=== PATIENT | male | born 1945 | race Caucasian/White ===

== ENCOUNTER 2018-08-23 11:34 | Outpatient (CLI) | payer MEDICARE, OTHER ==
[~2018-08-23] VITALS: Ht 182.9 cm; Wt 108.9 kg
[2018-08-23 12:04] VITALS: BP 110/71
[2018-08-23] MEDS ORDERED: NABU500T PO ×2 (12:37→14:32)
[2018-08-23] MEDS ORDERED: MULT-35 PO (14:32)
[2018-08-23] MEDS ORDERED: TRAM50TA2 PO (14:32)
[2018-08-23] MEDS ORDERED: METF500T8 PO (14:32)
[2018-08-23] MEDS ORDERED: FENO160T12 PO (14:32)
[2018-08-23] MEDS ORDERED: CHOL20003 PO (14:32)
[2018-08-23] MEDS ORDERED: LORA10TA7 PO (14:32)
[2018-08-23] MEDS ORDERED: TERA5CAP3 PO (14:32)
[2018-08-23] MEDS ORDERED: FURO-124 PO (14:32)
[2018-08-23] MEDS ORDERED: ATOR80TA76 PO (14:32)
[2018-08-23] MEDS ORDERED: WARF5TAB PO ×2 (14:32)
[2018-08-23] MEDS ORDERED: SAXA2.5T PO (14:32)
[2018-08-23] MEDS ORDERED: MELO7.5T46 PO (14:32)
[2018-08-23] MEDS ORDERED: CARV12.53 PO (14:32)
[2018-08-23] MEDS ORDERED: LISI-556 PO (14:32)
[2018-08-23] MEDS ORDERED: SPIR25TA5 PO (14:32)
[2018-08-23] MEDS ORDERED: GLYB5TAB6 PO (14:32)
== END 2018-08-23 12:40 | disposition home or self-care (01) ==
LOC: PREOP 11:34
PROVIDERS: ATTEND Orthopaedic Surgery Orthopaedic Surgery of the Spine
DX: Z01.818 Encounter for other preprocedural examination (principal)
CPT/HCPCS: 87081

== ENCOUNTER 2018-08-29 05:56 | Inpatient (IN) | payer MEDICARE, OTHER ==
[~2018-08-29] VITALS: Ht 182.9 cm; Wt 108.9 kg
[2018-08-29] VITALS (12 sets, daily range): BP systolic 108–147; BP diastolic 59–114
[~2018-08-29 05:56] MED LIST: ATOR80TA76 PO; CARV12.53 PO; CHOL20003 PO; FENO160T12 PO; FURO-124 PO; GLYB5TAB6 PO; LISI-556 PO; LORA10TA7 PO; MELO7.5T46 PO; METF500T8 PO; MULT-35 PO; NABU500T PO; SAXA2.5T PO; SPIR25TA5 PO; TERA5CAP3 PO; TRAM50TA2 PO; WARF5TAB PO
[2018-08-29] MEDS ORDERED: ceFAZolin 2 GM IV Premixed 50 ML IV ONE (06:15)
[2018-08-29] MEDS ORDERED: DEXMEDETOMIDINE 200 MCG/2 ML (PRECEDEX) VIAL IV ONE ×2 (06:34→08:30)
[2018-08-29] MEDS ORDERED: fentaNYL INJECTION 100 MCG/2 ML AMP ONE (06:34)
[2018-08-29] MEDS ORDERED: MIDAZOLAM 2 MG/2 ML (VERSED) VIAL ONE (06:34)
[2018-08-29] MEDS: LACTATED RINGERS 1,000 ML IV PRN ×3 (06:35→09:46)
[2018-08-29] MEDS ORDERED: FAMOTIDINE 20MG/2ML IV (PEPCID) IV ONE (06:45)
[2018-08-29 06:46] LABS: BASOPHILS % (AUTO) 0 % (0-10); EOSINOPHILS # (AUTO) 0.2 10^3/uL (0.0-0.3); EOSINOPHILS % (AUTO) 2 % (0-10); HEMATOCRIT 45 % (40-54); HEMOGLOBIN 15.4 G/DL (13.3-17.7); LYMPHOCYTES % (AUTO) 12 % (12-44); MEAN CORPUSCULAR HEMOGLOBIN 32 PG (25-34); MEAN CORPUSCULAR HGB CONC 34 G/DL (32-36); MEAN CORPUSCULAR VOLUME 94 FL (80-99); MEAN PLATELET VOLUME 10.6 FL (7.4-10.4); MONOCYTES # (AUTO) 0.8 X 10^3 (0.0-1.0); MONOCYTES % (AUTO) 10 % (0-12); NEUTROPHILS # (AUTO) 6.8 X 10^3 (1.8-7.8); NEUTROPHILS % (AUTO) 76 % (42-75); PLATELET COUNT 201 10^3/uL (130-400); RED BLOOD COUNT 4.81 10^6/uL (4.35-5.85); RED CELL DISTRIBUTION WIDTH 14.9 % (10.0-14.5); WHITE BLOOD COUNT 8.9 10^3/uL (4.3-11.0)
[2018-08-29 06:59] LABS: PROTHROMBIN TIME PATIENT 13.5 SEC (12.2-14.7)
[2018-08-29 07:01] LABS: CALCIUM 10.2 MG/DL (8.5-10.1); CREATININE SERUM 1.81 MG/DL (0.60-1.30); POTASSIUM 4.8 MMOL/L (3.6-5.0)
[2018-08-29] MEDS ORDERED: GENTAMICIN 40 MG/ML 2 ML INJ SDV ONE (07:05)
[2018-08-29] MEDS ORDERED: ACETAMINOPHEN 325 MG TABLET PO PRN (07:30)
[2018-08-29] MEDS ORDERED: ONDANSETRON 4 MG/2 ML (SDV) Z0FRAN IV PRN (07:30)
[2018-08-29] MEDS ORDERED: BISACODYL 10 MG SUPP (DULCOLAX) PR PRN (07:30)
[2018-08-29] MEDS ORDERED: fentaNYL INJECTION 100 MCG/2 ML AMP IVP ONE (07:45)
[2018-08-29] MEDS ORDERED: morphine INJ 10 MG/ML 1ML (SYR OR VIAL) IVP ONE (07:45)
[2018-08-29] MEDS ORDERED: ONDANSETRON 4 MG/2 ML (SDV) Z0FRAN IVP PRN (07:45)
[2018-08-29] MEDS ORDERED: MEPERIDINE (DEMEROL) INJ 50 MG/ML IVP ONE (07:45)
[2018-08-29] MEDS ORDERED: LIDOCAINE PF 2% 2 ML (XYLOCAINE) VIAL ONE (08:30)
[2018-08-29] MEDS ORDERED: PHENYLEPHRINE 100 MCG/ML 10 ML (ANESTHESIA) SYR ONE (08:30)
[2018-08-29] MEDS ORDERED: proPOfol 200 MG/20 ML (DIPRIVAN) VIAL IV ONE ×2 (08:30→09:35)
[2018-08-29] MEDS ORDERED: SEVOFLURANE (ULTANE) 15 ML INHAL SOLN ONE ×3 (08:30→10:04)
[2018-08-29] MEDS ORDERED: LIDOCAINE JELLY 2% (XYLOCAINE) 5 ML TUBE ONE (08:30)
[2018-08-29] MEDS ORDERED: PHENYLEPHRINE INJ 10 MG/ML (NEO-SYNEPHRINE 1%) ONE (08:30)
[2018-08-29] MEDS ORDERED: LACTATED RINGERS 1,000 ML IV ONE ×2 (08:30→09:37)
[2018-08-29] MEDS ORDERED: SUCCINYLCHOLINE INJ 100 MG/5 ML SYR ONE (08:31)
[2018-08-29] MEDS ORDERED: ROCURONIUM 10 MG/ML 5 ML SYRINGE IV ONE (08:31)
[2018-08-29] MEDS ORDERED: VANCOMYCIN 1000 MG/VIAL ONE (09:11)
[2018-08-29] MEDS ORDERED: GLYCOPYRROLATE 0.2 MG/ML (ROBINUL) 2 ML VIAL ONE (09:33)
[2018-08-29] MEDS ORDERED: NEOSTIGMINE 1 MG/ML 5 ML SYRINGE ONE (09:33)
[2018-08-29] MEDS ORDERED: TRANEXAMIC ACID 100 MG/ML 10 ML INJECTION IV ONE (09:36)
--- NOTE | 2018-08-29 10:00 | Progress Note-Post Operative ---
Post-Operative Progess Note Surgeon (s)/Tool And Cutter Grinder (s) Surgeon ARPITA DERAS MD Tool And Cutter Grinder: HERNAN Garcia Pre-Operative Diagnosis Stenosis, Spondy Post-Operative Diagnosis Same Procedure & Operative Findings Date of Procedure 08/29/18 Procedure Performed/Findings L5-S1 TLIF/PSF with Wade Lami Anesthesia Type GETA Estimated Blood Loss Estimated blood loss (mL): 100 Specimens/Packing Specimens Removed None ARPITA DERAS MD Aug 29, 2018 10:00 am
[2018-08-29] MEDS ORDERED: FLU QUADRIvalent (5+ YOA) 2018-2019 (AFLURIA) 0.5 ML IM ONE (11:30)
[2018-08-29] MEDS ORDERED: morphine INJ 10 MG/ML 1ML (SYR OR VIAL) ONE (12:02)
[2018-08-29] MEDS: morphine INJ 10 MG/ML 1ML (SYR OR VIAL) IVP PRN ×3 (12:09→19:48)
--- NOTE | 2018-08-29 12:12 | Diagnostic Imaging Report ---
INDICATION: Lumbar spine surgery. FINDINGS: Fluoroscopy was provided in the OR during lumbar spine surgery. 18 seconds of fluoroscopy was utilized. There are posterior spinal fixation rods and pedicle screws transfixing the L5-S1 level. There is grade 1 spondylolisthesis of L5 on S1. An intervertebral device at L5-S1 is also seen. IMPRESSION: Fluoroscopy for lumbar spine surgery. Dictated by: Dictated on workstation # [id number]
[2018-08-29] MEDS: DOCUSATE SODIUM 100 MG (COLACE) CAP PO SCH ×2 (14:01→19:47)
[2018-08-29] MEDS: inSUlin ASPART (NovoLOG) 1 UNIT/0.01 ML (CHARGE PER UNIT) SC SCH ×3 (14:01→21:15)
--- NOTE | 2018-08-29 14:29 | OPERATIVE REPORT ---
DATE OF SERVICE: 08/29/2018 PREOPERATIVE DIAGNOSES: 1. Lumbar spondylolysis, lumbar spondylolisthesis, lumbar stenosis, neural foramen due to slippage, stenosis. 2. Lumbar radiculopathy. POSTOPERATIVE DIAGNOSES: 1. Lumbar spondylolysis, lumbar spondylolisthesis, lumbar stenosis, neural foramen due to slippage, stenosis. 2. Lumbar radiculopathy. PROCEDURES PERFORMED: 1. L5-S1 transforaminal lumbar interbody fusion and posterior spinal fusion (single incision, anterior and posterior fusion). 2. L5-S1 interbody cage instrumentation without interval fixation. 3. L5-S1 posterior nonsegmental spinal instrumentation. 4. L5 Wade laminectomy with decompression of the entire L5 Wade fragment including bilateral removal of abnormal intraarticular pars regions and foraminotomy in excess of what is typically required for a TLIF procedure. 5. Autograft for spine surgery, local. 6. Allograft for spine surgery, morselized. DATE AND TIME OF SURGERY: Please see anesthesia record. IMPLANTS USED: Medtronic Solera pedicle screw instrumentation, Medtronic ARTiC-L cage, Medtronic Orthoblend bone graft. SURGEON: Reno Barragan MD. PRICING CLERK: MIMI Garcia. ROLE OF PLAN NURSE: Aid in retraction of the procedure, aid in implantation, instrumentation and wound closure. ANESTHESIA: General endotracheal. ESTIMATED BLOOD LOSS: Less than 100 mL. INTRAVENOUS FLUIDS: Please see anesthesia record. ANTIBIOTICS: Ancef. COMPLICATIONS: None. SPECIMENS: None. INDICATIONS FOR PROCEDURE: The patient is a 72-year-old male with progressively intolerable back lower extremity pain, high grade stenosis, failed conservative therapy, desires operative treatment. NEUROMONITORING: Standard intraoperative neuromonitoring carried out by means of real time continuous high quality bidirectional mode, audio and visual communication to both the histopathology technician and surgeon by . SSEPs, EMGs and TOFs carried out continuously throughout the procedure stable. DESCRIPTION OF PROCEDURE: The patient was taken to the preoperative holding area and brought back to the operative suite. After adequate induction of general anesthetic, preoperative antibiotics, carefully turned prone on the Forrest table, careful padding to all extremities, sterilely prepped and draped to the lumbosacral spine. Attention was directed to midline. Incision was made overlying L5-S1. Dissection was carried down to the level of the lamina, the appropriate level was confirmed. Full exposure was carried out and then a complete Wade laminectomy was performed removing the entire L5 lamina. Bilateral intraarticular pars regions were decompressed as well and once full and adequate decompression was assured, attention was directed to the left side where the disk was prepped. Trial spacer was utilized. This was packed with autograft bone and then a TLIF cage was impacted into the appropriate position, filled with allograft bone. Once it was in place, attention was directed to placement of screws. Bilateral L5 and S1 pedicle screws were placed, checked on imaging, checked with neuromonitoring and noted to be satisfactory. Rods were applied, reduction maneuver was achieved, reducing the spondylolisthesis. Final tightening was performed. High speed bur was used to decorticate posterolaterally at L5-S1 and autograft bone and allograft bone was packed in the posterolateral gutters for the fusion portion of procedure. Wound was copiously irrigated. Deep drain was placed. Wound was closed in layers. The patient transferred to recovery room in stable condition having tolerated the procedure well with stable spinal monitoring. Job ID: [id number] DocumentID: [id number] Dictated Date: 08/29/2018 10:04:16 Vocational Coordinator Date: 08/29/2018 14:29:26 Dictated By: RENO BARRAGAN MD [facility]
[2018-08-29] MEDS: CARVEDILOL 12.5 MG (COREG) TABLET PO SCH ×2 (14:55→19:47)
[2018-08-29] MEDS: NS IV 1000 ML 1,000 ML IV SCH ×3 (14:56→23:34)
[2018-08-29] MEDS: ceFAZolin 2 GM IV Premixed 50 ML IV SCH ×2 (14:56→23:34)
[2018-08-29] MEDS: TERAZOSIN 5 MG (HYTRIN) CAPSULE PO SCH (19:47)
[2018-08-29] MEDS ORDERED: NON-FORMULARY MEDICATION 1 EA EA (Terazosin HCl 5 MG) PO SCH (21:00)
[2018-08-29] MEDS ORDERED: CARVEDILOL 12.5 MG (COREG) TABLET PO SCH (21:00)
[2018-08-30] VITALS: BP 112/59
[2018-08-30] MEDS: morphine INJ 10 MG/ML 1ML (SYR OR VIAL) IVP PRN ×2 (03:54→10:40)
[2018-08-30 04:00] VITALS: BP 131/68
[2018-08-30 06:01] LABS: HEMOGLOBIN 13.3 G/DL (13.3-17.7); MEAN PLATELET VOLUME 10.9 FL (7.4-10.4); RED BLOOD COUNT 4.05 10^6/uL (4.35-5.85); RED CELL DISTRIBUTION WIDTH 14.8 % (10.0-14.5); WHITE BLOOD COUNT 8.5 10^3/uL (4.3-11.0)
--- NOTE | 2018-08-30 06:08 | Progress Note (SOAP) ---
Subjective Date Seen by a Provider: Aug 30, 2018 Time Seen by a Provider: 06:06 Subjective/Events-last exam Feels pretty good, surprised how good he feels Legs ok Objective Exam Vital Signs Date Time Temp Pulse Resp B/P (MAP) Pulse Ox O2 Delivery O2 Flow Rate FiO2 08/30/18 00:00 98.9 83 20 112/59 (76) 93 Nasal Cannula 2.00 08/29/18 19:00 98.4 78 20 123/59 (80) 92 Nasal Cannula 2.00 08/29/18 18:01 97.6 80 20 127/68 (87) 93 Nasal Cannula 2.00 08/29/18 18:00 Nasal Cannula 2.00 08/29/18 16:37 97.6 Nasal Cannula 2.00 08/29/18 16:00 74 19 136/78 (97) 96 Nasal Cannula 2.00 08/29/18 15:00 73 16 147/114 (125) 97 Nasal Cannula 3.00 08/29/18 14:00 69 9 143/88 (106) 97 Nasal Cannula 4.00 08/29/18 13:00 73 08/29/18 13:00 73 11 137/86 (103) 96 Nasal Cannula 4.00 08/29/18 12:00 76 18 119/76 (90) 95 Nasal Cannula 4.00 08/29/18 11:45 76 15 118/80 (93) 95 Nasal Cannula 4.00 08/29/18 11:30 77 17 119/71 (87) 95 Nasal Cannula 4.00 08/29/18 11:15 80 21 112/72 (85) 08/29/18 11:03 74 08/29/18 11:00 108/84 (92) 08/29/18 10:59 Nasal Cannula 4.00 08/29/18 06:20 97.7 76 18 136/90 (105) 94 Room Air I & O 08/30/18 07:00 Intake Total 3840 ml Output Total 2155 ml Balance 1685 ml Capillary Refill : Less Than 3 Seconds General Appearance: No Apparent Distress Neck: Supple Respiratory: No Accessory Muscle Use, No Respiratory Distress Cardiovascular: Regular Rate, Rhythm, Normal Peripheral Pulses Gastrointestinal: soft Extremity: Normal Capillary Refill, No Calf Tenderness Neurologic/Psychiatric: Alert, Oriented x3, No Motor/Sensory Deficits Results Lab Laboratory Tests 08/29/18 06:27: Glucometer 179H 08/29/18 06:39: White Blood Count 8.9, Red Blood Count 4.81, Hemoglobin 15.4, Hematocrit 45, Mean Corpuscular Volume 94, Mean Corpuscular Hemoglobin 32, Mean Corpuscular Hemoglobin Concent 34, Red Cell Distribution Width 14.9H, Platelet Count 201, Mean Platelet Volume 10.6H, Neutrophils (%) (Auto) 76H, Lymphocytes (%) (Auto) 12, Monocytes (%) (Auto) 10, Eosinophils (%) (Auto) 2, Basophils (%) (Auto) 0, Neutrophils # (Auto) 6.8, Lymphocytes # (Auto) 1.0, Monocytes # (Auto) 0.8, Eosinophils # (Auto) 0.2, Basophils # (Auto) 0.0, Prothrombin Time 13.5, INR Comment 1.0, Sodium Level 135, Potassium Level 4.8, Chloride Level 103, Carbon Dioxide Level 20L, Anion Gap 12, Blood Urea Nitrogen 28H, Creatinine 1.81H, Estimat Glomerular Filtration Rate 37, BUN/Creatinine Ratio 15, Glucose Level 174H, Calcium Level 10.2H 08/29/18 12:01: Glucometer 171H 08/29/18 17:19: Glucometer 135H 08/29/18 20:58: Glucometer 164H 08/30/18 05:13: Glucometer 230H 08/30/18 05:30: White Blood Count 8.5, Red Blood Count 4.05L, Hemoglobin 13.3, Hematocrit 39L, Mean Corpuscular Volume 96, Mean Corpuscular Hemoglobin 33, Mean Corpuscular Hemoglobin Concent 34, Red Cell Distribution Width 14.8H, Platelet Count 171, Mean Platelet Volume 10.9H Assessment/Plan Assessment/Plan Assess & Plan/Chief Complaint Lumbar Spondylolisthesis/Stenosis S/P L5-S1 TLIF/PSF Up with PT Pain Control Clinical Quality Measures DVT/VTE Risk/Contraindication: Risk Factor Score Per Nursin RFS Level Per Nursing on Admit: 4+=Very High ARPITA DERAS MD Aug 30, 2018 6:08 am
[2018-08-30] MEDS: MULTIVIT W/MINERALS TAB (THERAGRAN M) PO SCH (06:11)
[2018-08-30] MEDS: PANTOPRAZOLE 40 MG (PROTONIX) TAB PO SCH (06:11)
[2018-08-30] MEDS: ceFAZolin 2 GM IV Premixed 50 ML IV SCH (06:11)
[2018-08-30] MEDS: inSUlin ASPART (NovoLOG) 1 UNIT/0.01 ML (CHARGE PER UNIT) SC SCH ×4 (06:17→21:14)
[2018-08-30 06:20] LABS: ALBUMIN 3.6 GM/DL (3.2-4.5); BILIRUBIN,TOTAL 0.8 MG/DL (0.1-1.0); CALCIUM 8.9 MG/DL (8.5-10.1); CREATININE SERUM 1.71 MG/DL (0.60-1.30); POTASSIUM 4.5 MMOL/L (3.6-5.0)
[2018-08-30 08:00] VITALS: BP 121/69
[2018-08-30] MEDS: CARVEDILOL 12.5 MG (COREG) TABLET PO SCH ×2 (08:33→20:22)
[2018-08-30] MEDS: DOCUSATE SODIUM 100 MG (COLACE) CAP PO SCH ×2 (08:33→20:22)
[2018-08-30] MEDS: LORATADINE (CLARITIN) 10 MG TAB PO SCH (08:33)
--- NOTE | 2018-08-30 09:22 | Physical Therapy Evaluation ---
PT Evaluation-General Medical Diagnosis Admission Date Aug 29, 2018 at 05:56 Medical Diagnosis: spondylolisthesis/stenosis Onset Date: Aug 29, 2018 Therapy Diagnosis Therapy Diagnosis: debility Height/Weight Height (Feet): 6 Height (Inches): 0.00 Weight (Pounds): 240 Weight (Ounces): 0.0 Precautions Precautions/Isolations: Standard Precautions Weight Bear Status Right Lower Extremity: Right Weight Bearing/Tolerated Left Lower Extremity: Left Full Weight Bearing Referral Physician: Laurel Reason for Referral: Evaluation/Treatment Medical History Pertinent Medical History: Atrial Fib, CAD, DM, Smoking Current History s/p L5-K1 TLIF/PSF laminectomy Reviewed History: Yes Social History Home: Single Level Current Living Status: Alone Entry Into Home: Stairs With Railing PT Steps Into Home: 4 Prior/Core FIM Prior Level of Function Functional [place] Measure 0=Not Assessed/NA 4=Minimal Assistance 1=Total Assistance 5=Supervision or Setup 2=Maximal Assistance 6=Modified [place] 3=Moderate Assistance 7=Complete [place] Bed Mobility: 7 Transfers (B,C,W/C) (FIM): 7 Gait: 7 Locomotion: 7 PT Evaluation-Current Subjective Patient agrees to PT. Pain Numeric Pain Scale: 8 Location: Lower Location Body Site: Back Pain Description: Acute Objective Patient Orientation: Normal For Age Problem Solving: Fair ROM/Strength ROM Lower Extremities bilateral LE WFL Strength Lower Extremities 4-/5 grossly bilaterally Integumentary/Posture Integumentary refer to nursing notes Bowel Incontinence: No Bladder Incontinence: No Posture WFL Neuromuscular (Tone, Coordination, Reflexes) grossly intact Sensory Vision: Functional Hearing: Functional Sensation Right Lower Extremit: Impaired Sensation Left Lower Extremity: Impaired Transfers Functional [place] Measure 0=Not Assessed/NA 4=Minimal Assistance 1=Total Assistance 5=Supervision or Setup 2=Maximal Assistance 6=Modified [place] 3=Moderate Assistance 7=Complete [place] Transfers (B, C, W/C) (FIM): 5 Scootin Rollin Supine to/from Sit: 5 Sit to/from Stand: 5 Gait Mode of Locomotion: Walk Anticipated Mode of Locomotion: Walk Gait (FIM): 5 Distance (FIM): 3=150 ft Distance: 500' Gait Level of Assist: 5 Gait Assistive Device: FWW Comments/Gait Description safe and functional/no deviation Balance Sitting Static: Normal Sitting Dynamic: Normal Standing Static: Normal Standing Dynamic: Normal Assessment/Needs 72 y.o. male, will be seen short term by skilled PT to address functional mobility and strength. Patient is safe to ambulate PRN with nursing staff to improve functional mobility. Rehab Potential: Good PT Antique Dealer Goals Jail Goals PT Jail Goals Time Frame: Sep 10, 2018 Transfers (B,C,W/C) (FIM): 6 Gait (FIM): 6 Gait distance (FIM): 3=150 ft Distance: 600' Gait Level of Assist: 6 Gait Assistive Device: FWW Stairs (FIM): 2 # of Steps: 4 Stairs Level Of Assist: 5 PT Plan Treatment/Plan Treatment Plan: Continue Plan of Care Treatment Plan: Bed Mobility, Education, Functional Activity Keny, Functional Strength, Gait, Safety, Therapeutic Exercise, Transfers Treatment Duration: Sep 10, 2018 Frequency: 6 times per week Estimated Hrs Per Day: .25 hour per day Patient and/or Family Agrees t: Yes Time/GCodes Time In: 855 Time Out: 910 Total Billed Treatment Time: 15 Total Billed Treatment 1 visit [facility] 15 min G Codes Necessary: No ISACC RAMOS PT Aug 30, 2018 09:22
--- NOTE | 2018-08-30 09:25 | Anesthesia-General Post-Op ---
General Patient Condition Mental Status/LOC: Same as Preop Cardiovascular: Satisfactory Nausea/Vomiting: Absent Respiratory: Satisfactory Pain: Controlled Complications: Absent Post Op Complications Complications None Follow Up Care/Instructions Patient Instructions None needed. Anesthesia/Patient Condition Patient Condition Patient is doing well, no complaints, stable vital signs, no apparent adverse anesthesia problems. No complications reported per nursing. HAI GOODWIN CRNA Aug 30, 2018 09:25
--- NOTE | 2018-08-30 09:33 | Diagnostic Imaging Report ---
EXAM: LUMBAR SPINE - 2-3 VIEWS INDICATION: Prior lumbar spine surgery. COMPARISON: None. FINDINGS: There are postoperative findings of bilateral sylvia and pedicle screw fixation with interbody fusion at L5-S1. Components appear intact. Normal alignment. Bfqi-ii-[id number] degenerative endplate changes in the remaining lumbar spine are greatest at L3-L4. Moderate lower lumbar facet arthropathy. Vertebral body heights are preserved. Aneurysmal dilatation of the calcified abdominal aorta. Gaseous distention of the transverse colon. IMPRESSION: 1. Postoperative findings of bilateral sylvia and pedicle screw fixation with interbody fusion at L5-S1. 2. Aneurysmal dilatation of the calcified aorta. 3. Moderate gaseous distention of the transverse colon. Dictated by: Dictated on workstation # [id number]
--- NOTE | 2018-08-30 10:00 | Progress Note-Hospitalist ---
KWAME CORTES DO 08/30/18 0959: Subjective HPI/CC On Admission Date Seen by Provider: Aug 30, 2018 Subjective/Events-last exam Patient doing well Checked meds Urinary retention noted Pain is improved Objective Exam Vital Signs Vital Signs Date Time Temp Pulse Resp B/P (MAP) Pulse Ox O2 Delivery O2 Flow Rate FiO2 08/30/18 15:32 97.9 77 12 102/66 (78) 92 08/30/18 12:00 Nasal Cannula 2.00 Capillary Refill : Less Than 3 Seconds General Appearance: No Apparent Distress, WD/WN, Chronically ill, Obese Respiratory: Chest Non Tender, Lungs Clear, Normal Breath Sounds, No Accessory Muscle Use, No Respiratory Distress Cardiovascular: No Edema, No Gallop, No JVD, No Murmur, Normal Peripheral Pulses, Irregularly Irregular Gastrointestinal: Distended Neurologic/Psychiatric: Alert, Oriented x3, No Motor/Sensory Deficits, Normal Mood/Affect Skin: Normal Color, Warm/Dry Lymphatic: No Adenopathy Results/Procedures Lab Laboratory Tests 08/30/18 05:30 Patient resulted labs reviewed. Assessment/Plan Assessment and Plan Assess & Plan/Chief Complaint Lumbar spine surgery Urinary retention AF DM HTN CHRISTINA Bladder meds Monitor BP and BS closely Diagnosis/Problems Diagnosis/Problems (1) Lumbar spondylosis Status: Chronic Assessment & Plan: S/p L5-S1 TLIF/PSF w/ Wade Robini performed by Dr. Barragan (2) HTN (hypertension) Status: Chronic Assessment & Plan: Blood pressures have normalized since admission. Will restart home meds. (3) Atrial fibrillation Status: Chronic Assessment & Plan: Anticoagulated on Coumadin Qualifiers: Atrial fibrillation type: chronic Qualified Codes: I48.2 - Chronic atrial fibrillation (4) Cardiac defibrillator in place Status: Chronic (5) Renal injury Status: Chronic Assessment & Plan: Creatinine of 1.8 Qualifiers: Encounter type: sequela Laterality: unspecified laterality Qualified Codes: S37.009S - Unspecified injury of unspecified kidney, sequela (6) Type 2 diabetes mellitus Status: Chronic Assessment & Plan: BS: 170s Will restart home meds Qualifiers: Diabetes mellitus senior living insulin use: without roasterman use Diabetes mellitus complication status: with circulatory complication Diabetes mellitus complication detail: with other circulatory complications Qualified Codes: E11.59 - Type 2 diabetes mellitus with other circulatory complications (7) Hyperlipemia Status: Chronic Qualifiers: Hyperlipidemia type: mixed hyperlipidemia Qualified Codes: E78.2 - Mixed hyperlipidemia (8) Diabetic neuropathy Status: Chronic Qualifiers: Diabetes mellitus type: type 2 Diabetes mellitus complication detail: with other neurological complication Qualified Codes: E11.49 - Type 2 diabetes mellitus with other diabetic neurological complication (9) Benign prostate hyperplasia Status: Chronic Assessment & Plan: Currently catheterized (10) CAD (coronary artery disease) Status: Chronic Qualifiers: Coronary Disease-Associated Artery/Lesion type: [place] artery [place] vs. transplanted heart: rincon heart Associated angina: without angina Qualified Codes: I25.10 - Atherosclerotic heart disease of rincon coronary artery without angina pectoris (11) spondy Status: Chronic (12) Urinary retention Status: Acute Clinical Quality Measures Admission Status Admission Dx s/p uncomplicated lumbar spine surgery DM CAD I personally have seen and evaluated the patient and performed the physical exam. I agree with the documented assessment and plan. DVT/VTE Risk/Contraindication: Risk Factor Score Per Nursin RFS Level Per Nursing on Admit: 4+=Very High KWAME VU MEDICAL STUDENT 08/30/18 1105: Subjective HPI/CC On Admission Time Seen by Provider: 10:00 s/p uncomplicated lumbar spine surgery DM CAD Subjective/Events-last exam Per Dr. Barragan patient was moved to [facility] and can be up with PT. Reports some odynophagia, which he suspects may be due to intubation. Is able to eat, but has difficulty. Speech therapy will be consulted. Catheter is in place, will be removed today. Has not yet had a BM since surgery , hasn't felt need. Requests eventual discharge to [facility] which is closer to his home in [place], [place]. Social work consulted. Review of Systems General: No Chills Pulmonary: No Dyspnea Cardiovascular: No: Chest Pain, Edema Gastrointestinal: No: Nausea, Vomiting, Diarrhea, Constipation Genitourinary: No Dysuria Objective Exam General Appearance: No Apparent Distress, WD/WN HEENT: Normal ENT Inspection Neck: Full Range of Motion, Non Tender, Supple Respiratory: Chest Non Tender, Lungs Clear, Normal Breath Sounds, No Accessory Muscle Use, No Respiratory Distress Cardiovascular: Regular Rate, Rhythm, No Edema, No Gallop, No JVD, No Murmur, Normal Peripheral Pulses Gastrointestinal: Non Tender, Soft Back: Vertebral Tenderness (s/p surgery) Extremity: Normal Inspection, Non Tender, No Calf Tenderness, No Pedal Edema Neurologic/Psychiatric: Alert, Oriented x3 Skin: Normal Color, Warm/Dry Results/Procedures Imaging: Reviewed Imaging Report Radiology Date of Exam:08/30/18 LUMBAR SPINE - 2-3 VIEWS EXAM: LUMBAR SPINE - 2-3 VIEWS INDICATION: Prior lumbar spine surgery. COMPARISON: None. FINDINGS: There are postoperative findings of bilateral sylvia and pedicle screw fixation with interbody fusion at L5-S1. Components appear intact. Normal alignment. Zoug-vu-[id number] degenerative endplate changes in the remaining lumbar spine are greatest at L3-L4. Moderate lower lumbar facet arthropathy. Vertebral body heights are preserved. Aneurysmal dilatation of the calcified abdominal aorta. Gaseous distention of the transverse colon. IMPRESSION: 1. Postoperative findings of bilateral sylvia and pedicle screw fixation with interbody fusion at L5-S1. 2. Aneurysmal dilatation of the calcified aorta. 3. Moderate gaseous distention of the transverse colon. Assessment/Plan Assessment and Plan Assess & Plan/Chief Complaint s/p uncomplicated lumbar spine surgery: Patient reports doing well. Per Dr. Barragan patient was moved to [facility] and can be up with PT. Catheter will be removed today. Requests eventual discharge to [facility] which is closer to his home in [place], [place]. Social work consulted. Odynophagia: Speech therapy consulted. DM: BS elevated. Not yet restarted on home meds. Will Receive insulin today. KWAME ARAYA DO Aug 30, 2018 09:59 KWAME VU MEDICAL STUDENT Aug 30, 2018 11:05
[2018-08-30 12:00] VITALS: BP 114/60
[2018-08-30] MEDS: HYDROcodone/APAP 5 MG/325 MG (LORTAB) TAB PO PRN ×2 (12:40→20:21)
--- NOTE | 2018-08-30 13:06 | ST Dysphagia Evaluation ---
Speech Evaluation-General Medical Diagnosis spondylolisthesis/stenosis Onset Date: Aug 29, 2018 Therapy Diagnosis Therapy Diagnosis: ? Dysphagia Precautions Precautions/Isolations: Standard Precautions Referral Referring Physician: Dr. Barragan Medical History Pertinent Medical History: Atrial Fib, CAD, DM, Smoking Reviewed History: Yes Social History Current Living Status: Alone Speech PLF/Current-Dysphagia Prior Level of Function No reports of dysphagia. Subjective Pt in bed. Stated he had difficulty last night swallowing some pot roast and then again this morning with pancakes. Cognitive Status Patient Orientation: Person Oral Motor Skills Dentition: Natural Current Food Consistancy: Regular, Thin Liquids Ability to Follow Directions: Good Oral Expression Ability: No Impairment Voice Voice Phonatory-Based Quality: Normal Voice Pitch: Normal Voice Loudness: Normal Face Facial Symmetry: Symmetrical Oral-Facial Assessment Oral-Facial Dentition: Normal Labial Seal Description: Normal Dysphagia Evaluation Consistencies Presented: Regular, Thin Liquid, Mechanical Soft, Pureed Appeared WFL. Appeared WFL Dietary Recommendations: Regular Liquid Recommendations: Thin No signs/symptoms of aspiration noted. Regular diet with thin liquids. Swallowing Precautions: Alternate Liquids/Solids Speech Short Term Goals Short Term Goals Short Term Goals no goals established as skilled ST not indicated. Speech Alf Goals Fnp Goals no goals established as skilled ST not indicated. Speech-Plan Patient/Family Goals Patient/Family Goals: to be able to swallow Treatment Plan Speech Therapy Treatment Plan: Discontinue ST Pt instructed to alternate solids and liquids to help move food along. Pt acknowledged understanding. Frequency: Modified Program (IRF) (0) Estimated Hrs Per Day: Other (0) Rehab Potential: Good Pt/Family Agrees to Plan: Yes Safety Risks/Education Teaching Recipient: Patient Teaching Methods: Discussion Response to Teaching: Verbalize Understanding Time Speech Therapy Time In: 10:35 Speech Therapy Time Out: 10:50 Total Billed Time: 15 Billed Treatment Time 1, KIANA GOODMAN Aug 30, 2018 13:06
--- NOTE | 2018-08-30 14:19 | Occupational Therapy Eval ---
OT Evaluation-General/PLF Medical Diagnosis Admission Date Aug 29, 2018 at 05:56 Medical Diagnosis: spondylolisthesis/stenosis Onset Date: Aug 29, 2018 Therapy Diagnosis Therapy Diagnosis: decr self care, wakness, decr funct mobility, decr act tolerance Height/Weight Height (Feet): 6 Height (Inches): 0.00 Weight (Pounds): 240 Weight (Ounces): 0.0 Precautions Precautions/Isolations: Standard Precautions Safety Interventions: None Referral Physician: Laurel Referral Reason: Evaluation/Treatment Medical History Pertinent Medical History: Atrial Fib, Arthritis, CABG, CAD, COPD, DM, Heart Failure, Neuropathy (feet), Smoking Additional Medical History Sleep apnea. Defibrillator. Chronic low back pain. Chronic diarrhea. C5-7 surgery Current History L5-S1 TLIF/PSF with lami on 08-29-18 Social History Home: Single Level Current Living Status: Alone Entry Into Home: Stairs With Railing Steps Into Home: 2 ADL-Prior Level of Function ADL PLOF Comments Pt reported that he was able to manage his basic self care needs prior to admission. 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 pain reported 4/10 in his back Appearance Alert, cooperative Mental Status/Objective Patient Orientation: Person, Place, Situation Attachments: Saline Lock Current Glasses/Contacts: Yes Hand Dominance: Right Upper Extremity ROM Grossly WFL bilat Upper Extremity Strength grossly 4/5 bilat ADL-Treatment ADL-Current Pt recently had Hurley DCd and was concerned because he was unable to urinate ( he was able to place urinal himself). Has not been up to bathroom but is aware that his balance is not good enough at this time to stand by the toilet by himself. Walked 500' with SBA and WW with PT. has back brace to wear when up. Nursing addressing drainage in his back Functional [place] Measure 0=Not Assessed/NA 4=Minimal Assistance 1=Total Assistance 5=Supervision or Setup 2=Maximal Assistance 6=Modified [place] 3=Moderate Assistance 7=Complete IndependenceIRFPAI Quality Coding Scale 6 Independent with activity with or without an assistive device 5 Patient requires set up or clean up by helper. Patient completes activity by themselves 4 Supervision or touching assist (CGA). [place] provide cues , steadying assist 3 The helper provides less than half the effort to complete the activity 2 The helper provides more than half the effort to complete the activity 1 Dependent. The helper does all the effort to complete an activity 7 Patient refused to complete or attempt activity 9 The patient did not perform the activity before the current illness or injury 88 Not attempted due to Medical conditions or safety concerns Briefly discussed using a chair to bathe and raising toilet seat for ease in transfers. Education OT Patient Education: Modified ADL techniques, Purpose of tx/functional activities, Rehab process, Use of adapted equipment Teaching Recipient: Patient Teaching Methods: Discussion Response to Teaching: Verbalize Understanding, Reinforcement Needed OT Sap Business Objects Developer Goals Sap Business Objects Developer Goals Time Frame: Sep 06, 2018 Eating (FIM): 6 Grooming(FIM): 6 Bathing(FIM): 5 Upper Body Dressing(FIM): 5 Lower Body Dressing(FIM): 5 Toileting(FIM): 6 Toilet/Commode Transfer(FIM): 6 Shower Transfer(FIM): 5 Additional Goals: 1-Demonstrate ADL Tasks, 2-Verbalize Understanding, 3- ImproveStrength/Keny 1=Demonstrate adherence to instructed precautions during ADL tasks. 2=Patient will verbalize/demonstrate understanding of assistive devices/ modifications for ADL. 3=Patient will improve strength/tolerance for activity to enable patient to perform ADL's. OT Education/Plan Problem List/Assessment Assessment: Decreased Activ Tolerance, Decreased UE Strength, Dependent Transfers, Impaired Funct Balance, Impaired Self-Care Skills Pt would benefit from skilled OT to increase his independence in basic self care Discharge Recommendations Plan/Recommendations: Continue POC Treatment Plan/Plan of Care Treatment,Training & Education: Yes Patient would benefit from OT for education, treatment and training to promote independence in ADL's, mobility, safety and/or upper extremity function for ADL' s. Plan of Care: ADL Retraining, Functional Mobility, UE Funct Exercise/Act, UE Neuromus Re-Ed/Coord Treatment Duration: Sep 06, 2018 Frequency: 5 times per week Estimated Hrs Per Day: .5 hour per day Agreement: Yes Rehab Potential: Good Time/GCodes Start Time: 13:38 Stop Time: 13:48 Total Time Billed (hr/min): 10 Billed Treatment Time visit, 10 minutes evaluation moderate intensity JULIENNE WILL OT Aug 30, 2018 14:19
[2018-08-30 15:32] VITALS: BP 102/66
[2018-08-30] MEDS ORDERED: LIDOCAINE UROJET 2% GEL 10 ML PKG TOP NR (16:30)
[2018-08-30] MEDS: TAMSULOSIN 0.4 MG (FLOMAX) CAP PO SCH (17:30)
[2018-08-30] MEDS: PHENAZOPYRIDINE 100 MG (PYRIDIUM) TABLET PO SCH (17:30)
[2018-08-30 19:43] VITALS: BP 144/69
[2018-08-30] MEDS: BETHANECHOL 25 MG (URECHOLINE) TAB PO SCH (20:22)
[2018-08-30] MEDS: TERAZOSIN 5 MG (HYTRIN) CAPSULE PO SCH (20:22)
[2018-08-31] VITALS: BP 135/61
[2018-08-31] MEDS ORDERED: MILK OF MAGNESIA 400 MG/5 ML 30 ML UDC PO ONE (05:15)
--- NOTE | 2018-08-31 05:15 | Progress Note (SOAP) ---
Subjective Date Seen by a Provider: Aug 31, 2018 Time Seen by a Provider: 05:12 Subjective/Events-last exam POD #2, s/p L5-S1 TLIF, PSF with Wade laminectomy Urinary retention last night, ashford replaced Complains of low back pain Denies lower extremity pain Review of Systems General: No Chills, No Night Sweats Pulmonary: No Cough Cardiovascular: No: Chest Pain Genitourinary: Retention Musculoskeletal: back pain; No: leg pain Neurological: No: Weakness Objective Exam Vital Signs Date Time Temp Pulse Resp B/P (MAP) Pulse Ox O2 Delivery O2 Flow Rate FiO2 08/31/18 00:00 97.2 84 20 135/61 (85) 93 Room Air 08/30/18 19:43 98.7 93 16 144/69 (94) 92 08/30/18 15:32 97.9 77 12 102/66 (78) 92 08/30/18 12:00 97.0 89 20 114/60 (78) 92 Nasal Cannula 2.00 08/30/18 11:15 99.0 08/30/18 10:40 99.0 08/30/18 08:23 91 Nasal Cannula 2.00 08/30/18 08:00 98.7 88 20 121/69 (86) 92 Nasal Cannula 2.00 08/30/18 08:00 99.0 I & O 08/31/18 07:00 Intake Total 1930 ml Output Total 2300 ml Balance -370 ml Capillary Refill : Less Than 3 Seconds General Appearance: No Apparent Distress Respiratory: No Respiratory Distress Cardiovascular: No Edema, Normal Peripheral Pulses Gastrointestinal: soft, distended; No guarding, No rebound Extremity: Non Tender, No Calf Tenderness Neurologic/Psychiatric: Alert, Oriented x3, No Motor/Sensory Deficits, counselor manager II- XII Norm as Tested Skin: Other (Dressing with mild saturation) Results Lab Laboratory Tests 08/30/18 05:13: Glucometer 230H 08/30/18 05:30: White Blood Count 8.5, Red Blood Count 4.05L, Hemoglobin 13.3, Hematocrit 39L, Mean Corpuscular Volume 96, Mean Corpuscular Hemoglobin 33, Mean Corpuscular Hemoglobin Concent 34, Red Cell Distribution Width 14.8H, Platelet Count 171, Mean Platelet Volume 10.9H, Sodium Level 135, Potassium Level 4.5, Chloride Level 103, Carbon Dioxide Level 22, Anion Gap 10, Blood Urea Nitrogen 21H, Creatinine 1.71H, Estimat Glomerular Filtration Rate 40, BUN/Creatinine Ratio 12 , Glucose Level 208H, Calcium Level 8.9, Corrected Calcium 9.2, Total Bilirubin 0.8, Aspartate Amino Transf (AST/SGOT) 32, Alanine Aminotransferase (ALT/SGPT) 21, Alkaline Phosphatase 24L, Total Protein 6.0L, Albumin 3.6 08/30/18 11:33: Glucometer 207H 08/30/18 15:42: Glucometer 176H 08/30/18 21:09: Glucometer 211H Assessment/Plan Assessment/Plan Assess & Plan/Chief Complaint Lumbar stenosis with radiculopathy L5-S1 lytic spondylolisthesis S/P L5-S1 TLIF, PSF, with Wade laminectomy constipation- add miralax and milk of magnesia at this time Urinary retention- ashford replaced and started on medication discharge planning Clinical Quality Measures DVT/VTE Risk/Contraindication: Risk Factor Score Per Nursin RFS Level Per Nursing on Admit: 4+=Very High FAIZAN CLARK Aug 31, 2018 05:15
[2018-08-31] MEDS: PANTOPRAZOLE 40 MG (PROTONIX) TAB PO SCH (06:09)
[2018-08-31] MEDS: PHENAZOPYRIDINE 100 MG (PYRIDIUM) TABLET PO SCH ×2 (06:09→16:54)
[2018-08-31] MEDS: inSUlin ASPART (NovoLOG) 1 UNIT/0.01 ML (CHARGE PER UNIT) SC SCH ×4 (06:09→21:45)
[2018-08-31] MEDS: BETHANECHOL 25 MG (URECHOLINE) TAB PO SCH ×4 (06:09→21:50)
[2018-08-31] MEDS: MULTIVIT W/MINERALS TAB (THERAGRAN M) PO SCH (06:09)
[2018-08-31] MEDS: HYDROcodone/APAP 5 MG/325 MG (LORTAB) TAB PO PRN ×3 (06:13→18:27)
[2018-08-31 08:00] VITALS: BP 129/72
[2018-08-31] MEDS: DOCUSATE SODIUM 100 MG (COLACE) CAP PO SCH ×2 (09:16→21:44)
[2018-08-31] MEDS: CARVEDILOL 12.5 MG (COREG) TABLET PO SCH ×2 (09:16→21:44)
[2018-08-31] MEDS: LORATADINE (CLARITIN) 10 MG TAB PO SCH (09:16)
--- NOTE | 2018-08-31 09:21 | Physical Therapy Daily Note ---
PT Daily Note-Current Subjective Pt. up in chair states he is a little discouraged this morning as he had to have catheter put back in etc. Overall improved though Pain Numeric Pain Scale: 3 Location: Medial Location Body Site: Back Pain Description: Ache Mental Status Patient Orientation: Normal For Age Attachments: Hurley Catheter, Other-See Comments (back brace) Transfers Functional [place] Measure 0=Not Assessed/NA 4=Minimal Assistance 1=Total Assistance 5=Supervision or Setup 2=Maximal Assistance 6=Modified [place] 3=Moderate Assistance 7=Complete IndependenceIRFPAI Quality Coding Scale 6 Independent with activity with or without an assistive device 5 Patient requires set up or clean up by helper. Patient completes activity by themselves 4 Supervision or touching assist (CGA). [place] provide cues , steadying assist 3 The helper provides less than half the effort to complete the activity 2 The helper provides more than half the effort to complete the activity 1 Dependent. The helper does all the effort to complete an activity 7 Patient refused to complete or attempt activity 9 The patient did not perform the activity before the current illness or injury 88 Not attempted due to Medical conditions or safety concerns Transfers (B, C, W/C) (FIM): 5 Sit to/from Stand: 4 sit to stand from chair with 2 pillows to raise level CGA and still some effort for pt. Weight Bearing Right Lower Extremity: Right Weight Bearing/Tolerated Left Lower Extremity: Left Full Weight Bearing Gait Training Gait Assistive Device: FWW Gait training 400ft plus with FWW SBA slow, careful , no LOB, flexed over FWW at trunk Exercises Seated Therapy Exercises: Ankle pumps, Sit to stand, Long arc quads, Hip flexion, Hip abd/add Seated Reps: 15 Assessment Current Status: Good Progress progress in all phases of Rx PT Fci Goals Drywall Mechanic Goals PT Drywall Mechanic Goals Time Frame: Sep 10, 2018 Transfers (B,C,W/C) (FIM): 6 Gait (FIM): 6 Gait distance (FIM): 3=150 ft Distance: 600' Gait Level of Assist: 6 Gait Assistive Device: FWW Stairs (FIM): 2 # of Steps: 4 Stairs Level Of Assist: 5 PT Plan Treatment/Plan Treatment Plan: Continue Plan of Care Treatment Plan: Bed Mobility, Education, Functional Activity Keny, Functional Strength, Gait, Safety, Therapeutic Exercise, Transfers Treatment Duration: Sep 10, 2018 Frequency: 6 times per week Estimated Hrs Per Day: .25 hour per day Patient and/or Family Agrees t: Yes Safety Risks/Education Patient Education: Gait Training, Transfer Techniques, Correct Positioning, Disease Process, Safety Issues Teaching Recipient: Patient Teaching Methods: Demonstration, Discussion Response to Teaching: Verbalize Understanding, Return Demonstration, Reinforcement Needed Time/GCodes Time In: 835 Time Out: 900 Total Billed Treatment Time: 25 Total Billed Treatment 1,FA17m,EX8m G Codes Necessary: IRENA Mai PTA Aug 31, 2018 09:21
--- NOTE | 2018-08-31 09:32 | Occupational Ther Daily Note ---
OT Current Status-Daily Note Subjective Pt alert, sitting in recliner. No c/o pain. Pt agrees to therapy. Mental Status/Objective Patient Orientation: Person, Place, Time, Situation Functional [place] Measure 0=Not Assessed/NA 4=Minimal Assistance 1=Total Assistance 5=Supervision or Setup 2=Maximal Assistance 6=Modified [place] 3=Moderate Assistance 7=Complete [place] Attachments: IV, Suprapubic Catheter ADL-Treatment Pt adheres to back precautions, verbalizing and demonstrating understanding. Grooming (FIM): 5 (After set up, pt able to complete grooming sitting in recliner.) Bathing (FIM): 3 (Pt able to cleanse UE areas during sponge bath in sitting position. Mod A, in cleansing LE, buttocks and perineal area due to pt's back precautions.) Bathing Location: L Arm, R Arm, L Upper Leg, R Upper Leg, Chest, Abdomen Upper Body (FIM): 4 (Pt able to don/doff gown, needing assistance with reaching behind back to manipulate clothing. ) Lower Body Dressing (FIM): 2 (Max A, pt unable to reach LE due to back precautions. CORTNEY/s don/doff socks. ) Transfers (B, C, W/C) (FIM): 5 (SBA, pt uses FWW for stability in sit to stand. ) Pt stated that he has tub seat and grabbars in bathroom at home. After therapy , pt sitting in recliner with call light/phone in reach. All needs met in room. OT Short Term Goals Short Term Goals 1=Demonstrate adherence to instructed precautions during ADL tasks. 2=Patient will verbalize/demonstrate understanding of assistive devices/ modifications for ADL. 3=Patient will improve strength/tolerance for activity to enable patient to perform ADL's. OT Shelter Goals Shelter Goals Time Frame: Sep 06, 2018 Eating (FIM): 6 Grooming(FIM): 6 Bathing(FIM): 5 Upper Body Dressing(FIM): 5 Lower Body Dressing(FIM): 5 Toileting(FIM): 6 Toilet/Commode Transfer(FIM): 6 Shower Transfer(FIM): 5 Additional Goals: 1-Demonstrate ADL Tasks, 2-Verbalize Understanding, 3- ImproveStrength/Keny 1=Demonstrate adherence to instructed precautions during ADL tasks. 2=Patient will verbalize/demonstrate understanding of assistive devices/ modifications for ADL. 3=Patient will improve strength/tolerance for activity to enable patient to perform ADL's. OT Education/Plan Problem List/Assessment Pt would benefit from skilled OT to increase his independence in basic self care Discharge Recommendations Plan/Recommendations: Continue POC Treatment Plan/Plan of Care Patient would benefit from OT for education, treatment and training to promote independence in ADL's, mobility, safety and/or upper extremity function for ADL' s. Plan of Care: ADL Retraining, Functional Mobility, UE Funct Exercise/Act, UE Neuromus Re-Ed/Coord Treatment Duration: Sep 06, 2018 Frequency: 5 times per week Estimated Hrs Per Day: .5 hour per day Agreement: Yes Rehab Potential: Good Time/GCodes Start Time: 08:55 Stop Time: 09:20 Total Time Billed (hr/min): 25 Billed Treatment Time 1 visit- ADL 2 (25 min) RICHARD YADAV Aug 31, 2018 09:32
--- NOTE | 2018-08-31 10:48 | Progress Note-Hospitalist ---
KWAME CORTES DO 08/31/18 1048: Subjective HPI/CC On Admission s/p uncomplicated lumbar spine surgery DM CAD Subjective/Events-last exam Catheter will be maintained for 7 days then DC Will continue bladder meds in rehab SW consulted for placement BM regimen will be started Review of Systems Gastrointestinal: Constipation Objective Exam Vital Signs Vital Signs Date Time Temp Pulse Resp B/P (MAP) Pulse Ox O2 Delivery O2 Flow Rate FiO2 08/31/18 16:39 99.4 76 20 124/59 (80) 93 Room Air 08/30/18 12:00 2.00 Capillary Refill : Less Than 3 Seconds General Appearance: No Apparent Distress, WD/WN, Chronically ill Respiratory: Chest Non Tender, Lungs Clear, Normal Breath Sounds, No Accessory Muscle Use, No Respiratory Distress Cardiovascular: Regular Rate, Rhythm, No Edema, No Gallop, No JVD, No Murmur, Normal Peripheral Pulses Neurologic/Psychiatric: Alert, Oriented x3, No Motor/Sensory Deficits, Normal Mood/Affect Skin: Normal Color, Warm/Dry Results/Procedures Lab Patient resulted labs reviewed. Imaging: Reviewed Imaging Report Assessment/Plan Assessment and Plan Assess & Plan/Chief Complaint Lumbar spine surgery Urinary retention AF DM HTN CHRISTINA Bladder meds Monitor BP and BS closely BM regimen Maintain catheter Diagnosis/Problems Diagnosis/Problems (1) Lumbar spondylosis Status: Chronic Assessment & Plan: S/p L5-S1 TLIF/PSF w/ Wade Lami performed by Dr. Barragan (2) HTN (hypertension) Status: Chronic Assessment & Plan: Blood pressures have normalized since admission. Will restart home meds. (3) Atrial fibrillation Status: Chronic Assessment & Plan: Anticoagulated on Coumadin Qualifiers: Atrial fibrillation type: chronic Qualified Codes: I48.2 - Chronic atrial fibrillation (4) Cardiac defibrillator in place Status: Chronic (5) Renal injury Status: Chronic Assessment & Plan: Creatinine of 1.8 Qualifiers: Encounter type: sequela Laterality: unspecified laterality Qualified Codes: S37.009S - Unspecified injury of unspecified kidney, sequela (6) Type 2 diabetes mellitus Status: Chronic Assessment & Plan: BS: 170s Will restart home meds Qualifiers: Diabetes mellitus usp insulin use: without usp use Diabetes mellitus complication status: with circulatory complication Diabetes mellitus complication detail: with other circulatory complications Qualified Codes: E11.59 - Type 2 diabetes mellitus with other circulatory complications (7) Hyperlipemia Status: Chronic Qualifiers: Hyperlipidemia type: mixed hyperlipidemia Qualified Codes: E78.2 - Mixed hyperlipidemia (8) Diabetic neuropathy Status: Chronic Qualifiers: Diabetes mellitus type: type 2 Diabetes mellitus complication detail: with other neurological complication Qualified Codes: E11.49 - Type 2 diabetes mellitus with other diabetic neurological complication (9) Benign prostate hyperplasia Status: Chronic Assessment & Plan: Currently catheterized (10) CAD (coronary artery disease) Status: Chronic Qualifiers: Coronary Disease-Associated Artery/Lesion type: [place] artery [place] vs. transplanted heart: [place] heart Associated angina: without angina Qualified Codes: I25.10 - Atherosclerotic heart disease of [place] coronary artery without angina pectoris (11) spondy Status: Chronic (12) Urinary retention Status: Acute Clinical Quality Measures Admission Status Admission Dx s/p uncomplicated lumbar spine surgery DM CAD I personally have seen and evaluated the patient and performed the physical exam. I agree with the documented assessment and plan. DVT/VTE Risk/Contraindication: Risk Factor Score Per Nursin RFS Level Per Nursing on Admit: 4+=Very High KWAME VU MEDICAL STUDENT 08/31/18 1156: Subjective HPI/CC On Admission Date Seen by Provider: Aug 31, 2018 Time Seen by Provider: 08:00 Subjective/Events-last exam Feeling well. Up and walking the halls. Complaining of some constipation, is passing small amount of gas and stool. Agreeable to transfer on Wednesday to SNF. Hurley catheter in place. BS stable @ 200 Objective Exam General Appearance: No Apparent Distress, WD/WN Respiratory: Chest Non Tender, Lungs Clear, Normal Breath Sounds, No Accessory Muscle Use, No Respiratory Distress Cardiovascular: Regular Rate, Rhythm, No Edema, No Gallop, No JVD, No Murmur, Normal Peripheral Pulses Extremity: Non Tender, No Calf Tenderness Neurologic/Psychiatric: Alert, Oriented x3, Normal Mood/Affect Assessment/Plan Assessment and Plan Assess & Plan/Chief Complaint Lumbar spine surgery: Per nursing notes dressing was found half off & drain ineffective. Will continue without per [place]. Urinary retention: Hurley will remain in. Continue meds. Constipation: Ordered senna, lactulose & enema. PEG and magnesium also ordered by Baldo. AF DM: Continue to monitor BSs HTN Continue to monitor BP CHRISTINA Diagnosis/Problems Diagnosis/Problems (1) Lumbar spondylosis Status: Chronic (2) HTN (hypertension) Status: Chronic (3) Atrial fibrillation Status: Chronic Qualifiers: Atrial fibrillation type: chronic Qualified Codes: I48.2 - Chronic atrial fibrillation (4) CAD (coronary artery disease) Status: Chronic Qualifiers: Coronary Disease-Associated Artery/Lesion type: [place] artery [place] vs. transplanted heart: [place] heart Associated angina: without angina Qualified Codes: I25.10 - Atherosclerotic heart disease of [place] coronary artery without angina pectoris (5) Hyperlipemia Status: Chronic Qualifiers: Hyperlipidemia type: mixed hyperlipidemia Qualified Codes: E78.2 - Mixed hyperlipidemia (6) Benign prostate hyperplasia Status: Chronic (7) Renal injury Status: Chronic Qualifiers: Encounter type: sequela Laterality: unspecified laterality Qualified Codes: S37.009S - Unspecified injury of unspecified kidney, sequela (8) Type 2 diabetes mellitus Status: Chronic Qualifiers: Diabetes mellitus usp insulin use: without usp use Diabetes mellitus complication status: with circulatory complication Diabetes mellitus complication detail: with other circulatory complications Qualified Codes: E11.59 - Type 2 diabetes mellitus with other circulatory complications (9) Urinary retention Status: Acute KWAME CORTES DO Aug 31, 2018 10:48 KWAME VU MEDICAL STUDENT Aug 31, 2018 11:56
[2018-08-31] MEDS ORDERED: LACTULOSE SYRUP 10GM/15ML (ENULOSE) 30ML UDC PO NR (11:00)
[2018-08-31] MEDS: SENNA W/DOCUSATE (SENOKOT S) TABLET PO SCH ×2 (11:28→21:44)
[2018-08-31] MEDS: morphine INJ 10 MG/ML 1ML (SYR OR VIAL) IVP PRN ×2 (15:23→21:45)
[2018-08-31 16:39] VITALS: BP 124/59
[2018-08-31] MEDS: TAMSULOSIN 0.4 MG (FLOMAX) CAP PO SCH (18:24)
[2018-08-31] MEDS ORDERED: POLYETHYLENE GLYCOL 17 GM (MIRALAX) PACK PO SCH (21:00)
[2018-08-31] MEDS: TERAZOSIN 5 MG (HYTRIN) CAPSULE PO SCH (21:44)
[2018-09-01 00:16] VITALS: BP 108/60
[2018-09-01] MEDS: HYDROcodone/APAP 5 MG/325 MG (LORTAB) TAB PO PRN ×2 (04:03→09:59)
[2018-09-01] MEDS: PHENAZOPYRIDINE 100 MG (PYRIDIUM) TABLET PO SCH (05:31)
[2018-09-01] MEDS: inSUlin ASPART (NovoLOG) 1 UNIT/0.01 ML (CHARGE PER UNIT) SC SCH ×2 (05:31→13:07)
[2018-09-01] MEDS: MULTIVIT W/MINERALS TAB (THERAGRAN M) PO SCH (05:31)
[2018-09-01] MEDS: BETHANECHOL 25 MG (URECHOLINE) TAB PO SCH ×2 (05:31→13:06)
[2018-09-01] MEDS: PANTOPRAZOLE 40 MG (PROTONIX) TAB PO SCH (05:31)
--- NOTE | 2018-09-01 06:32 | Progress Note (SOAP) ---
Subjective Time Seen by a Provider: 06:29 Subjective/Events-last exam Pt states that his back is sore, but doing better. He wants to be rid of the ashford, but understands we need to give his bladder some time. Objective Exam Vital Signs Date Time Temp Pulse Resp B/P (MAP) Pulse Ox O2 Delivery O2 Flow Rate FiO2 09/01/18 00:16 98.6 89 19 108/60 (76) 93 Room Air 08/31/18 20:00 Room Air 08/31/18 16:39 99.4 76 20 124/59 (80) 93 Room Air 08/31/18 08:00 97.1 87 20 129/72 (91) 92 Room Air 08/31/18 08:00 Room Air I & O 09/01/18 07:00 Intake Total 3830 ml Output Total 1276 ml Balance 2554 ml Capillary Refill : Less Than 3 Seconds General Appearance: No Apparent Distress, WD/WN Extremity: Normal Inspection, Non Tender Neurologic/Psychiatric: Alert, No Motor/Sensory Deficits Results Lab Laboratory Tests 08/31/18 11:17: Glucometer 303H 08/31/18 16:43: Glucometer 194H 08/31/18 21:02: Glucometer 255H 09/01/18 05:26: Glucometer 261H Assessment/Plan Assessment/Plan Assess & Plan/Chief Complaint Lumbar stenosis with radiculopathy L5-S1 lytic spondylolisthesis S/P L5-S1 TLIF, PSF, with Wade laminectomy Urinary retention cont ashford He wants to wait till Wednesday to go to rehab, but he should be fine to be transferred tomorrow. Will evaluate again in the morning. Continue PT and pain control Clinical Quality Measures DVT/VTE Risk/Contraindication: Risk Factor Score Per Nursin RFS Level Per Nursing on Admit: 4+=Very High MARIANO BRANDT Sep 01, 2018 06:32
[2018-09-01] MEDS: SENNA W/DOCUSATE (SENOKOT S) TABLET PO SCH (07:35)
[2018-09-01] MEDS: LORATADINE (CLARITIN) 10 MG TAB PO SCH (07:36)
[2018-09-01] MEDS: CARVEDILOL 12.5 MG (COREG) TABLET PO SCH (07:36)
[2018-09-01] MEDS: DOCUSATE SODIUM 100 MG (COLACE) CAP PO SCH (07:36)
[2018-09-01 08:00] VITALS: BP 119/59
--- NOTE | 2018-09-01 10:25 | Occupational Ther Daily Note ---
OT Current Status-Daily Note Subjective Pt alert, sitting in recliner. Pt agrees to therapy. Mental Status/Objective Patient Orientation: Person, Place, Time, Situation Functional Andrew Measure 0=Not Assessed/NA 4=Minimal Assistance 1=Total Assistance 5=Supervision or Setup 2=Maximal Assistance 6=Modified Andrew 3=Moderate Assistance 7=Complete Andrew Attachments: Hurley Catheter ADL-Treatment Nrsg reported pt was able to complete shower. Pt stated previously that he was just going to let water run over his lower body to as adhere to back precautions. Functional Andrew Measure 0=Not Assessed/NA 4=Minimal Assistance 1=Total Assistance 5=Supervision or Setup 2=Maximal Assistance 6=Modified Andrew 3=Moderate Assistance 7=Complete IndependenceIRFPAI Quality Coding Scale 6 Independent with activity with or without an assistive device 5 Patient requires set up or clean up by helper. Patient completes activity by themselves 4 Supervision or touching assist (CGA). [place] provide cues , steadying assist 3 The helper provides less than half the effort to complete the activity 2 The helper provides more than half the effort to complete the activity 1 Dependent. The helper does all the effort to complete an activity 7 Patient refused to complete or attempt activity 9 The patient did not perform the activity before the current illness or injury 88 Not attempted due to Medical conditions or safety concerns Other Treatment Pt completed 3 UE strengthening exercises/10x/3 sets using red resistive theraband increasing UE strength and activity tolerance needed for daily functional activity. After therapy, pt sitting in recliner with call light/ phone within reach. All needs met in room. Theraband left in room for pt to complete throughout day. Education OT Patient Education: Exercise program Teaching Recipient: Patient Teaching Methods: Demonstration, Discussion Response to Teaching: Verbalize Understanding, Return Demonstration OT Short Term Goals Short Term Goals 1=Demonstrate adherence to instructed precautions during ADL tasks. 2=Patient will verbalize/demonstrate understanding of assistive devices/ modifications for ADL. 3=Patient will improve strength/tolerance for activity to enable patient to perform ADL's. OT Repairer Maintenance Building Goals Usp Goals Time Frame: Sep 06, 2018 Eating (FIM): 6 Groomin Bathing(FIM): 5 Upper Body Dressing(FIM): 5 Lower Body Dressing(FIM): 5 Toileting(FIM): 6 Toilet/Commode Transfer(FIM): 6 Shower Transfer(FIM): 5 Additional Goals: 1-Demonstrate ADL Tasks, 2-Verbalize Understanding, 3- ImproveStrength/Keny 1=Demonstrate adherence to instructed precautions during ADL tasks. 2=Patient will verbalize/demonstrate understanding of assistive devices/ modifications for ADL. 3=Patient will improve strength/tolerance for activity to enable patient to perform ADL's. OT Education/Plan Problem List/Assessment Pt would benefit from skilled OT to increase his independence in basic self care Discharge Recommendations Plan/Recommendations: Continue POC Treatment Plan/Plan of Care Patient would benefit from OT for education, treatment and training to promote independence in ADL's, mobility, safety and/or upper extremity function for ADL' s. Plan of Care: ADL Retraining, Functional Mobility, UE Funct Exercise/Act, UE Neuromus Re-Ed/Coord Treatment Duration: Sep 06, 2018 Frequency: 5 times per week Estimated Hrs Per Day: .5 hour per day Agreement: Yes Rehab Potential: Good Time/GCodes Start Time: 10:05 Stop Time: 10:20 Total Time Billed (hr/min): 15 Billed Treatment Time 1 visit- Ex 1 (15 min) RICHARD YADAV Sep 01, 2018 10:25
[2018-09-01] MEDS ORDERED: TRAM50TA2 PO (10:51)
[2018-09-01] MEDS ORDERED: PHEN-826 PO (10:51)
[2018-09-01] MEDS ORDERED: BETH25TA PO (10:51)
[2018-09-01] MEDS ORDERED: ACHD5005 PO (10:51)
--- NOTE | 2018-09-01 10:54 | Discharge Inst-Skilled Nursing ---
Discharge Inst-Skilled NF Patient Instructions Patient Problems: Spine surgery urinary retention DM AF Goal: Return to independent living Consult/Follow Up/Orders Follow Up Appt.: PCP in 1 week Skilled NF Admit to: Certification (SNF) I certify that SNF services are required to be given on an inpatient basis because of the above named patient's need for long-term care on a continuing basis for the conditions(s) for which he/she was receiving inpatient hospital services prior to his/her transfer to the SNF. Long Term Facility Order: Nursing Services, Scientologist-Evaluate & Treat, Physical Therapy-Evaluate & Treat Discharge Diet: ADA Diet, Cardiac Diet Daily Activity as Tolerated: Yes New & Resume Previous Orders Rand Melgoza Sep 01, 2018 10:54 Pneu Vac Indicated: Yes RAND MELGOZA DO Sep 01, 2018 10:54
--- NOTE | 2018-09-01 10:55 | Discharge Summary-Hospitalist ---
KWAME CORTES DO 09/01/18 1055: Diagnosis/Chief Complaint Date of Admission Aug 29, 2018 at 05:56 Date of Discharge Discharge Date: Sep 01, 2018 Discharge Diagnosis (1) Lumbar spondylosis Status: Chronic (2) HTN (hypertension) Status: Chronic (3) Atrial fibrillation Status: Chronic (4) CAD (coronary artery disease) Status: Chronic (5) Hyperlipemia Status: Chronic (6) Benign prostate hyperplasia Status: Chronic (7) Renal injury Status: Chronic (8) Type 2 diabetes mellitus Status: Chronic (9) Urinary retention Status: Acute Discharge Summary Discharge Physical Exam Allergies: Coded Allergies: niacin (Verified Adverse Reaction, Intermediate, 08/29/18) Severe flushing zolpidem (Verified Adverse Reaction, Unknown, 08/29/18) severe nightmares Vitals & I&Os Vital Signs Date Time Temp Pulse Resp B/P (MAP) Pulse Ox O2 Delivery O2 Flow Rate FiO2 09/01/18 08:00 97.6 80 18 119/59 (79) 93 Room Air 08/30/18 12:00 2.00 General Appearance: No Apparent Distress, WD/WN, Chronically ill, Obese Respiratory: Chest Non Tender, Lungs Clear, Normal Breath Sounds, No Accessory Muscle Use, No Respiratory Distress Cardiovascular: No Edema, No Gallop, No JVD, No Murmur, Normal Peripheral Pulses, Irregularly Irregular Neurologic/Psychiatric: Alert, Oriented x3, No Motor/Sensory Deficits, Normal Mood/Affect Hospital Course Hospital course: patient was admitted after uncomplicated lumbar spine surgery. Monitored closely in ICU due to co-morbidities. Pain was controlled post op well. Urinary retention required placement of [place] cath the remained at time of DC while placed on meds to facilitate resolution. Overall he did well and bowels were back to normal and at time of DC Warfarin was restarted and was able to go to [place] in [place] to recover. Labs (last 24 hrs) Laboratory Tests 08/31/18 16:43: Glucometer 194H 08/31/18 21:02: Glucometer 255H 09/01/18 05:26: Glucometer 261H 09/01/18 12:55: Glucometer 366H Patient resulted labs reviewed. Pending Labs Laboratory Tests 09/01/18 12:55: Glucometer 366 Imaging: Reviewed Imaging Report Discussion & Recommendations Discharge Planning: <30 minutes discharge planning Discharge Home Medications: Active Scripts Active Phenazopyridine HCl 100 Mg Tablet 200 Mg PO BID WITH MEALS Hydrocodone/Acetaminophen 5/325mg Tablet (Acetaminophen/Hydrocodone Bitart) 1 Tab Tab 1-2 Tab PO Q4H PRN Bethanechol Chloride 25 Mg Tablet 25 Mg PO ACHS 7 Days Tramadol HCl 50 Mg Tablet 50 Mg PO BID Reported Coumadin (Warfarin Sodium) 5 Mg Tablet 7.5 Mg PO SUTUWETHSA@1800 Coumadin (Warfarin Sodium) 5 Mg Tablet 5 Mg PO MOFR@1800 Lasix (Furosemide) 40 Mg Tablet 40 Mg PO DAILY PRN Terazosin HCl 5 Mg Capsule 5 Mg PO HS Loratadine 10 Mg Tablet 10 Mg PO DAILY Fenofibrate 160 Mg Tablet 160 Mg PO DAILY Glyburide 5 Mg Tablet 7.5 Mg PO DAILY Spironolactone 25 Mg Tablet 12.5 Mg PO DAILY Metformin HCl ER (Metformin HCl) 500 Mg Tab.er.24h 1,000 Mg PO BID Atorvastatin Calcium 80 Mg Tablet 80 Mg PO DAILY Vitamin D3 (Cholecalciferol (Vitamin D3)) 2,000 Unit Capsule 2,000 Unit PO DAILY Lisinopril 5 Mg Tablet 5 Mg PO DAILY Onglyza (Saxagliptin HCl) 2.5 Mg Tablet 2.5 Mg PO DAILY Carvedilol 12.5 Mg Tablet 12.5 Mg PO BID Daily Multiple Vitamin (Multivitamin) 1 Each Tablet 1 Tab PO DAILY Instructions to patient/family Please see electronic discharge instructions given to patient. Clinical Quality Measures Admission Status Admission Dx s/p uncomplicated lumbar spine surgery DM CAD I personally have seen and evaluated the patient and performed the physical exam. I agree with the documented assessment and plan. DVT/VTE Risk/Contraindication: Risk Factor Score Per Nursin RFS Level Per Nursing on Admit: 4+=Very High KWAME VU MEDICAL STUDENT 09/01/18 1347: Diagnosis/Chief Complaint Discharge Time: 12:00 Admission Diagnosis s/p L5-S1 TLIF/PSF w/ Wade Laminectomy Discharge Diagnosis (1) Lumbar spondylosis Status: Chronic (2) HTN (hypertension) Status: Chronic (3) Renal injury Status: Chronic (4) Urinary retention Status: Acute (5) Atrial fibrillation Status: Chronic (6) Cardiac defibrillator in place Status: Chronic (7) CAD (coronary artery disease) Status: Chronic (8) Hyperlipemia Status: Chronic (9) Benign prostate hyperplasia Status: Chronic (10) Type 2 diabetes mellitus Status: Chronic Discharge Summary Discharge Physical Exam Allergies: Coded Allergies: niacin (Verified Adverse Reaction, Intermediate, 08/29/18) Severe flushing zolpidem (Verified Adverse Reaction, Unknown, 08/29/18) severe nightmares General Appearance: No Apparent Distress, WD/WN Respiratory: Chest Non Tender, Lungs Clear, Normal Breath Sounds, No Accessory Muscle Use, No Respiratory Distress Cardiovascular: Regular Rate, Rhythm, No Edema, No Gallop, No JVD, No Murmur, Normal Peripheral Pulses Gastrointestinal: Normal Bowel Sounds, No Organomegaly, No Pulsatile Mass, Non Tender, Soft Extremity: Normal Capillary Refill, Normal Inspection, Non Tender, No Calf Tenderness Skin: Normal Color, Warm/Dry Neurologic/Psychiatric: Alert, Oriented x3, Normal Mood/Affect Hospital Course CC: Post lumbar surgery PCP: Dr. Klein in [place], [place] Pt is 72 yo M who is s/p L5-S1 TLIF/PSF w/ Wade Lami performed by Dr. Barragan to correct for lumbar stenosis and spondylosis. During recovery he became hypertensive which rapidly resolved with a nitro drip. Catheter initially placed as pt has hx of urinary retention. Eventually removed, and replaced once again due to pts inability to urinate despite medical therapy. By day #3 post-op pt demonstrated rapid improvement. Pain was well managed. Actively walking the calderon. Surgeon approved discharge of pt and restarting his coumadin. Catheter will remain in place, to be removed at the discretion of his SNF. Requested transfer to [facility]) in [place], [place]. Pt was accepted at that facility 08/31, and discharged to it the following day. Discussion & Recommendations Discharge Planning: <30 minutes discharge planning Problem Qualifiers (1) Atrial fibrillation: Atrial fibrillation type: chronic Qualified Codes: I48.2 - Chronic atrial fibrillation (2) CAD (coronary artery disease): Coronary Disease-Associated Artery/Lesion type: [place]reafski artery [place] vs. transplanted heart: andreafski heart Associated angina: without angina Qualified Codes: I25.10 - Atherosclerotic heart disease of andreafski coronary artery without angina pectoris (3) Hyperlipemia: Hyperlipidemia type: mixed hyperlipidemia Qualified Codes: E78.2 - Mixed hyperlipidemia (4) Renal injury: Encounter type: sequela Laterality: unspecified laterality Qualified Codes: S37.009S - Unspecified injury of unspecified kidney, sequela (5) Type 2 diabetes mellitus: Diabetes mellitus retirement insulin use: without retirement use Diabetes mellitus complication status: with circulatory complication Diabetes mellitus complication detail: with other circulatory complications Qualified Codes: E11.59 - Type 2 diabetes mellitus with other circulatory complications KWAME CORTES DO Sep 01, 2018 10:55 KWAME VU MEDICAL STUDENT Sep 01, 2018 13:47
--- NOTE | 2018-09-01 11:12 | Physical Therapy Daily Note ---
PT Daily Note-Current Subjective Patient reports he is dismissing to NH on this date. Agrees to PT. Pain Numeric Pain Scale: 7 Location: Lower Location Body Site: Back Pain Description: Acute Mental Status Patient Orientation: Normal For Age Attachments: Hurley Catheter Transfers Functional [place] Measure 0=Not Assessed/NA 4=Minimal Assistance 1=Total Assistance 5=Supervision or Setup 2=Maximal Assistance 6=Modified [place] 3=Moderate Assistance 7=Complete IndependenceIRFPAI Quality Coding Scale 6 Independent with activity with or without an assistive device 5 Patient requires set up or clean up by helper. Patient completes activity by themselves 4 Supervision or touching assist (CGA). [place] provide cues , steadying assist 3 The helper provides less than half the effort to complete the activity 2 The helper provides more than half the effort to complete the activity 1 Dependent. The helper does all the effort to complete an activity 7 Patient refused to complete or attempt activity 9 The patient did not perform the activity before the current illness or injury 88 Not attempted due to Medical conditions or safety concerns Transfers (B, C, W/C) (FIM): 6 Scootin Rollin Sit to/from Stand: 6 Weight Bearing Right Lower Extremity: Right Weight Bearing/Tolerated Left Lower Extremity: Left Full Weight Bearing Gait Training Gait (FIM): 6 Distance (FIM): 3=150 ft Distance: 500' Gait Level of Assist: 6 Gait Assistive Device: FWW steady, functional Exercises Seated Therapy Exercises: Ankle pumps, Long arc quads, Hip flexion Seated Reps: 15 Assessment Reviewed HEP with patient performing without difficulty. PT Snf Goals Screening Unit Registered Nurse Goals PT Snf Goals Time Frame: Sep 10, 2018 Transfers (B,C,W/C) (FIM): 6 Gait (FIM): 6 Gait distance (FIM): 3=150 ft Distance: 600' Gait Level of Assist: 6 Gait Assistive Device: FWW Stairs (FIM): 2 # of Steps: 4 Stairs Level Of Assist: 5 PT Plan Treatment/Plan Treatment Plan: Discontinue PT Treatment Plan: Bed Mobility, Education, Functional Activity Keny, Functional Strength, Gait, Safety, Therapeutic Exercise, Transfers Treatment Duration: Sep 10, 2018 Frequency: 6 times per week Estimated Hrs Per Day: .25 hour per day Patient and/or Family Agrees t: Yes Discharge Recommendations Therapy D/C Recommendations: Snf Placement, Senior Living (TCU/NH) Time/GCodes Time In: 5516 Time Out: 1058 Total Billed Treatment Time: 17 Total Billed Treatment 1 visit FA 17 min ISACC RAMOS PT Sep 01, 2018 11:12
[2018-09-01] MEDS ORDERED: warFARin 5 MG (COUMADIN) TAB PO SCH (18:00)
[2018-09-02] MEDS ORDERED: warFARin 5 MG (COUMADIN) TAB PO SCH (18:00)
== END 2018-09-01 13:21 | DRG 455 ==
LOC: 4TH 05:56 → SURG 05:57 → EDSTATUS 07:30 → ICU 11:36 → 4TH 17:31
PROVIDERS: ADMIT Orthopaedic Surgery Orthopaedic Surgery of the Spine; ATTEND Orthopaedic Surgery Orthopaedic Surgery of the Spine
PROC: 0SG3071 Fusion of Lumbosacral Joint with Autologous Tissue Substitute, Posterior Approach, Posterior Column, Open Approach (ICD-10-PCS; 2018-08-29)
PROC: 0SG30AJ Fusion of Lumbosacral Joint with Interbody Fusion Device, Posterior Approach, Anterior Column, Open Approach (ICD-10-PCS; principal; 2018-08-29 08:15)
DX: M43.06 Spondylolysis, lumbar region (principal); M48.061 Spinal stenosis, lumbar region without neurogenic claudication; M54.16 Radiculopathy, lumbar region; R33.9 Retention of urine, unspecified; I11.0 Hypertensive heart disease with heart failure; I50.9 Heart failure, unspecified; I48.2 Chronic atrial fibrillation; S37.009S Unspecified injury of unspecified kidney, sequela; E11.42 Type 2 diabetes mellitus with diabetic polyneuropathy; I25.10 Atherosclerotic heart disease of native coronary artery without angina pectoris; N40.0 Benign prostatic hyperplasia without lower urinary tract symptoms; G47.33 Obstructive sleep apnea (adult) (pediatric); M19.91 Primary osteoarthritis, unspecified site; J44.9 Chronic obstructive pulmonary disease, unspecified; F17.210 Nicotine dependence, cigarettes, uncomplicated; K21.9 Gastro-esophageal reflux disease without esophagitis; E78.2 Mixed hyperlipidemia; E78.00 Pure hypercholesterolemia, unspecified; E66.9 Obesity, unspecified; X58.XXXS Exposure to other specified factors, sequela; Z95.5 Presence of coronary angioplasty implant and graft; Z95.810 Presence of automatic (implantable) cardiac defibrillator; Z79.01 Long term (current) use of anticoagulants; Z95.1 Presence of aortocoronary bypass graft; Z87.442 Personal history of urinary calculi
CPT/HCPCS: 36415; 72100; 80048; 80053; 82962; 85025; 85027; 85610; 94664